=== PATIENT | female | born 1935 | race Caucasian/White ===

== ENCOUNTER 2020-06-28 07:09 | Emergency (ER) | payer OTHER ==
[~2020-06-28] VITALS: Ht 160 cm; Wt 90.7 kg
[~2020-06-28 07:09] MED LIST: AVAPRO 150 MG150 M1 PO; CHLOR-TABLET4 MG; DYMISTA NASAL S23 GM; FISH OIL 1,0001 EAC5 PO; LIPITOR10 MG PO; LIPITOR40 MG PO; LISINOPRIL20 MG; LOW DOSE ASPIRI81 M1 PO; MULTIVITAMINS1 EAC7 PO; NORVASC5 MG; VITAMIN B; VITAMIN B-1100 M1; VITAMIN D400 UNI1
[2020-06-28] MEDS ORDERED: AVAPRO300 MG PO (07:30)
[2020-06-28 08:07] LABS: ABSOLUTE NEUTROPHILS 3.8 thou/uL (1.4-8.2); EOSINOPHILS 2.4 % (0.0-3.0); HEMATOCRIT 42.6 % (37.0-47.0); LYMPHOCYTES 16.1 % (24.0-44.0); MCH 31.2 pg (26.0-34.0); MCHC 32.9 g/dL (28.0-37.0); MCV 94.8 fL (80.0-100.0); MONOCYTES 9.9 % (1.0-8.0); PLATELET COUNT 237 thou/uL (150-400); POLYS 70.6 % (36.0-66.0); RBC 4.49 mil/uL (4.20-5.00); RDW 14.3 % (10.5-14.5); WBC 5.4 thou/uL (4.0-11.0)
[2020-06-28 08:12] LABS: ANION GAP 7 mmol/L (7-16); BUN 17 mg/dL (7-18); CALCIUM 8.8 mg/dL (8.5-10.1); CHLORIDE 107 mmol/L (98-107); CO2 29 mmol/L (21-32); CREATININE 0.9 mg/dL (0.6-1.0); GLUCOSE 116 mg/dL (74-106); POTASSIUM 4.1 mmol/L (3.5-5.1); SODIUM 143 mmol/L (136-145)
[2020-06-28 08:21] LABS: TROPONIN-I <0.06 ng/mL (<0.06)
--- NOTE | 2020-06-28 08:29 | EKG ---
[facility] [place] [address] ELECTROCARDIOGRAM REPORT Name: TIM ALMENDAREZ Room #: REG [facility]#: [id number] Admission: 06/28/20 Attend Phys: Discharge: Date of : 31 Report #: [id number] THIS REPORT FOR: cc: Thuan Khan MD, Steven A. MD Couchonnal,Denis Curry MD ~ THIS REPORT FOR: //name// [facility] ED Test Date: 2020-06-28 Test Time: 08:07:53 Pat Name: TIM ALMENDAREZ Department: Room: Gender: Ager Operator: [facility] : 1935 Requested By: Parrish Morton Order Number: [id number] MD: Denis Blankenship Measurements Intervals [place] Rate: 73 P: 34 [place]: 179 QRS: -9 QRSD: 91 T: 63 QT: 384 QTc: 424 Interpretive Statements Sinus rhythm Compared to ECG 10/22/2015 14:35:48 No significant changes Electronically Signed On 06-28-2020 8:29:08 CDT by Denis Blankenship [email or web address] <ELECTRONICALLY SIGNED> By: Denis Blankenship MD 06/28/2029 6 6 Denis Blankenship MD /EPI
[2020-06-28] MEDS ORDERED: PROTONIX40 M1 PO ×2 (09:03→09:15)
[2020-06-28 09:22] VITALS: BP 120/47
== END 2020-06-28 09:22 | disposition home or self-care (01) ==
LOC: ER 07:09
PROVIDERS: Emergency Medicine
DX: G89.29 Other chronic pain (principal); M54.6 Pain in thoracic spine; Z79.899 Other long term (current) drug therapy; Z79.82 Long term (current) use of aspirin

== ENCOUNTER 2020-07-05 07:29 | Emergency (ER) | payer OTHER ==
[~2020-07-05] VITALS: Ht 162.6 cm; Wt 90.7 kg
[~2020-07-05 07:29] MED LIST changes: +AVAPRO300 MG PO; +PROTONIX40 M1 PO
[2020-07-05 08:00] LABS: ABSOLUTE NEUTROPHILS 2.9 thou/uL (1.4-8.2); BASOPHILS 1.3 % (0.0-2.0); EOSINOPHILS 3.1 % (0.0-3.0); HEMATOCRIT 42.2 % (37.0-47.0); HEMOGLOBIN 14.3 gm/dL (12.0-15.0); LYMPHOCYTES 20.3 % (24.0-44.0); MCH 31.8 pg (26.0-34.0); MCHC 33.8 g/dL (28.0-37.0); MONOCYTES 10.8 % (1.0-8.0); PLATELET COUNT 232 thou/uL (150-400); POLYS 64.5 % (36.0-66.0); RBC 4.49 mil/uL (4.20-5.00); RDW 14.2 % (10.5-14.5); WBC 4.5 thou/uL (4.0-11.0)
[2020-07-05 08:08] LABS: CALCIUM 9.1 mg/dL (8.5-10.1); CREATININE 0.9 mg/dL (0.6-1.0)
[2020-07-05 08:09] LABS: MAGNESIUM 2.2 mg/dL (1.8-2.4)
--- NOTE | 2020-07-05 09:12 | EKG ---
[facility] [place] [address] ELECTROCARDIOGRAM REPORT Name: TIM ALMENDAREZ Room #: REG [facility]#: [id number] Admission: 07/05/20 Attend Phys: Discharge: Date of : 31 Report #: [id number] THIS REPORT FOR: cc: Thuan Khan MD, Steven A. MD Lundgren,Harshad Frederick MD [facility] ~ THIS REPORT FOR: //name// [facility] ED Test Date: 2020-07-05 Test Time: 08:50:18 Pat Name: TIM ALMENDAREZ Department: Room: Gender: F Launch Check Out: : 1935 Requested By: Kj Quintanilla Order Number: [id number] MD: Harshad Carrillo Measurements Intervals [place] Rate: 65 P: 36 [place]: 188 QRS: -7 QRSD: 97 T: 51 QT: 403 QTc: 419 Interpretive Statements Sinus rhythm Normal tracing Compared to ECG 06/28/2020 08:07:53 No significant changes Electronically Signed On 07-05-2020 9:12:42 CDT by Harshad Carrillo [email or web address] <ELECTRONICALLY SIGNED> By: Harshad Carrillo MD, [facility] 07/05/2012 0850 0850 Harshad Carrillo MD, [facility] /EPI
[2020-07-05 09:15] VITALS: BP 124/51
== END 2020-07-05 09:23 | disposition home or self-care (01) ==
LOC: ER 07:29
PROVIDERS: Emergency Medicine
DX: R20.2 Paresthesia of skin (principal); R20.0 Anesthesia of skin; R53.1 Weakness; Z98.61 Coronary angioplasty status; Z98.890 Other specified postprocedural states; Z79.899 Other long term (current) drug therapy; Z79.82 Long term (current) use of aspirin

== ENCOUNTER 2020-11-17 10:05 | Emergency (ER) | payer OTHER ==
[~2020-11-17] VITALS: Ht 162.6 cm; Wt 90.7 kg
[2020-11-17] MEDS ORDERED: IBU800 MG PO (10:29)
[2020-11-17 11:25] LABS: URINE BILIRUBIN NEGATIVE (Negative); URINE BLOOD NEGATIVE (Negative); URINE CLARITY CLEAR; URINE COLOR YELLOW; URINE GLUCOSE-RANDOM* NEGATIVE (Negative); URINE KETONES NEGATIVE (Negative); URINE NITRITE-REFLEX NEGATIVE (Negative); URINE PROTEIN (DIPSTICK) NEGATIVE (Negative); URINE UROBILINOGEN 0.2 E.U./dl (0.2-1.0)
[2020-11-17 11:29] LABS: URINE LEUKOCYTES-REFLEX 1+ (Negative)
[2020-11-17 11:34] LABS: SQUAMOUS >10 Many /LPF (0-3)
[2020-11-17 11:35] LABS: CASTS None Seen /LPF (None Seen); RENAL EPITHELIAL CELLS 4-10 Moderate /LPF (None Seen); TRANSITIONAL EPITHEL CELL 0-3 Few /LPF (None Seen); URINE RBC 0-2 Rare /HPF (0-2); URINE WBC-REFLEX 6-15 Few /HPF (0-5)
[2020-11-17 11:36] LABS: BACTERIA-REFLEX 1-9 Few /HPF (None Seen); CRYSTALS None Seen /LPF (None Seen)
[2020-11-17] MEDS ORDERED: MEDROLDOSEPACK PO (13:17)
[2020-11-17] MEDS ORDERED: LIDOCAINE PAIN1 EACH TOP (13:17)
[2020-11-17 13:40] VITALS: BP 142/54
== END 2020-11-17 13:41 | disposition home or self-care (01) ==
LOC: ER 10:05
PROVIDERS: Emergency Medicine
DX: M25.552 Pain in left hip (principal); M25.551 Pain in right hip; M43.6 Torticollis; M54.9 Dorsalgia, unspecified; Z98.61 Coronary angioplasty status; Z79.899 Other long term (current) drug therapy; Z79.82 Long term (current) use of aspirin